=== PATIENT | female | born 1970 | race Caucasian/White ===

== ENCOUNTER 2020-07-23 07:31 | Day surgery (SDC) | payer OTHER ==
[~2020-07-23] VITALS: Ht 167.6 cm; Wt 86.2 kg
[~2020-07-23 07:31] MED LIST: ASPI-498 PO; ATOR20TA PO; CETI1TAB36 PO; LISI20TA28 PO; MULT-1058 PO; NICO4GUM8 PO; NITR0.4S29 SL; OMEP-434 PO
[2020-07-23] MEDS ORDERED: LIDOCAINE 2%HCL (LOCAL ANESTH.) INJ 20ML MDV ONE (08:50)
[2020-07-23] MEDS ORDERED: IODIXANOL 320MG/ML 100ML BTL IV ONE (08:50)
[2020-07-23] MEDS ORDERED: VERAPAMIL 2.5MG/ML INJ 2ML VIAL IV ONE (08:55)
[2020-07-23] MEDS ORDERED: MIDAZOLAM HCL 1MG/1ML-2 ML VIAL ONE (08:55)
[2020-07-23] MEDS ORDERED: fentaNYL CITRATE 100 MCG/2 ML VL ONE (08:55)
[2020-07-23] MEDS ORDERED: HEPARIN SODIUM (PORCINE) 5000 UNITS/ML 1ML VIAL ONE (08:56)
[2020-07-23] MEDS ORDERED: ACETAMINOPHEN 500 MG TAB PO PRN (10:30)
[2020-07-23] MEDS ORDERED: ONDANSETRON HCL 4 MG/2 ML VIAL IV PRN (10:30)
== END 2020-07-23 11:50 | disposition home or self-care (01) ==
LOC: CATH 07:31
PROVIDERS: ATTEND Internal Medicine Cardiovascular Disease
DX: R07.89 Other chest pain (principal); I10 Essential (primary) hypertension; E78.5 Hyperlipidemia, unspecified; I25.2 Old myocardial infarction; Z87.891 Personal history of nicotine dependence; Z79.82 Long term (current) use of aspirin; Z90.710 Acquired absence of both cervix and uterus; Z20.822 Contact with and (suspected) exposure to COVID-19; Z98.890 Other specified postprocedural states; Z79.899 Other long term (current) drug therapy; Z68.30 Body mass index [BMI] 30.0-30.9, adult
CPT/HCPCS: 93458; C1887; C1894; J1644; J2250; J3010; J7030; Q9967; U0003; 99152; 99153